=== PATIENT | male | born 1950 | race Caucasian/White ===

== ENCOUNTER 2024-05-27 18:11 | Emergency (ER) | payer OTHER ==
[2024-05-27 20:03] LABS: BASOPHILS ABSOLUTE AUTO 0.1 K/mm3 (0.0-0.2); BASOPHILS PERCENT AUTO 0.7 % (0.0-1.0); EOSINOPHILS ABSOLUTE AUTO 0.2 K/mm3 (0.0-0.4); EOSINOPHILS PERCENT AUTO 2.4 % (0.0-6.0); HEMATOCRIT 36.1 % (42.0-52.0); HEMOGLOBIN 12.7 gm/dl (14.0-18.0); IMMATURE GRAN ABSOLUTE AUTO 0.07 K/mm3 (0.00-0.05); LYMPHOCYTES ABSOLUTE AUTO 0.8 K/mm3 (1.0-4.8); LYMPHOCYTES PERCENT AUTO 11.4 % (24.0-44.0); MEAN CORPUSCULAR HEMOGLOBIN 29.7 pg (28.0-32.0); MEAN CORPUSCULAR HGB CONC 35.2 g/dl (32.0-36.0); MEAN CORPUSCULAR VOLUME 84.3 fl (83.0-99.0); MEAN PLATELET VOLUME 9.6 fl (9.4-12.4); MONOCYTES ABSOLUTE AUTO 0.6 K/mm3 (0.0-0.8); MONOCYTES PERCENT AUTO 8.5 % (0.0-8.0); NEUTROPHILS ABSOLUTE AUTO 5.4 K/mm3 (1.8-7.7); PLATELET COUNT,PLT 282 K/mm3 (150-400); RED BLOOD CELL COUNT 4.28 M/mm3 (4.52-5.90)
[2024-05-27] MEDS: Sodium Chloride 0.9% 1,000 ML IV SCH (20:16)
[2024-05-27] MEDS: Sodium Chloride 0.9% 10 ML Syringe FLUSH PRN (20:16)
[2024-05-27] MEDS: Ondansetron 4 MG/2 ML SDV IVPUSH ONE (20:16)
[2024-05-27 20:23] LABS: INR 1.06; PROTHROMBIN TIME 11.2 SECONDS (9.7-12.0)
[2024-05-27 20:32] LABS: A/G RATIO 0.6 (1-2); ALBUMIN 2.8 g/dl (3.4-5.0); ANION GAP 27.5 (5-15); BILIRUBIN TOTAL 0.4 mg/dL (0.2-1.0); C-REACTIVE PROTEIN 8.73 mg/dL (<0.30); CALCIUM 8.6 mg/dL (8.5-10.1); EST CRCL DRUG DOSING (CG) 7.42 mL/min; MAGNESIUM 2.8 mg/dL (1.8-2.4); POTASSIUM,K 4.5 mEq/L (3.5-5.1); PROTEIN TOTAL,TP 7.2 g/dl (6.4-8.2)
[2024-05-27 21:11] LABS: BUN/CREATININE RATIO 18.8 (14-18)
[2024-05-27] MEDS: Acetaminophen 325 MG Tab PO ONE (21:29)
[2024-05-27 22:25] LABS: BASE EXCESS ARTERIAL 9.4 (-2-2.0); BICARBONATE,ARTERIAL 14.4 meq/L (22.0-26.0); O2 SATURATION ARTERIAL 97.7 % (96.0-97.0)
[2024-05-27] MEDS: Sodium Bicarbonate 150 MEQ in Dextrose 5% in Water 1,000 ML IV ONE (23:36)
[2024-05-28 00:02] LABS: APPEARANCE,URINE CLEAR (Clear); BILIRUBIN,URINE NEGATIVE (Negative); COLOR,URINE YELLOW (Yellow); GLUCOSE,URINE NEGATIVE (Negative); KETONES,URINE TRACE (Negative); LEUKOCYTE ESTERASE,URINE NEGATIVE (Negative); NITRITE,URINE NEGATIVE (Negative); OCCULT BLOOD,URINE 3+ (Negative); PH,URINE 5.5 (5.0-8.0); PROTEIN,URINE 2+ (Negative); UROBILINOGEN,URINE 0.2 (0.2-1.0)
[2024-05-28 00:23] LABS: BACTERIA,URINE FEW /hpf (FEW); EPITHELIAL CELLS,URINE 0-5 /hpf (0-5); RBC,URINE 30-40 /hpf (0-5)
[2024-05-28 00:24] LABS: MUCUS,URINE NOT SEEN /hpf (FEW)
== END 2024-05-28 01:29 ==
LOC: JD.ED 18:11 → MERGE 18:11 → JD.ED 05-28 01:29
DX: N17.9 Acute kidney failure, unspecified (principal); R91.1 Solitary pulmonary nodule
CPT/HCPCS: 36415; 36600; 71046; 74176; 80053; 81001; 82803; 83605; 83690; 83735; 83880; 84484; 85025; 85610; 86140; 87428; 93005; 96361; 96365; 96366; 96375; 99285; A9270; J2405; J7030; J7060; 93010; J3490

== ENCOUNTER 2024-06-09 14:39 | Inpatient (IN) | payer OTHER ==
[2024-06-09 16:00] LABS: APPEARANCE,URINE CLEAR (Clear); BILIRUBIN,URINE NEGATIVE (Negative); COLOR,URINE YELLOW (Yellow); GLUCOSE,URINE NEGATIVE (Negative); KETONES,URINE NEGATIVE (Negative); LEUKOCYTE ESTERASE,URINE NEGATIVE (Negative); NITRITE,URINE NEGATIVE (Negative); OCCULT BLOOD,URINE NEGATIVE (Negative); PROTEIN,URINE 2+ (Negative)
[2024-06-09 16:30] LABS: RBC,URINE 0-5 /hpf (0-5); WBC,URINE 0-5 /hpf (0-5)
[2024-06-09 16:31] LABS: BACTERIA,URINE FEW /hpf (FEW); EPITHELIAL CELLS,URINE 0-5 /hpf (0-5); MUCUS,URINE NOT SEEN /hpf (FEW)
[2024-06-09 16:36] LABS: BASOPHILS ABSOLUTE AUTO 0.1 K/mm3 (0.0-0.2); BASOPHILS PERCENT AUTO 1.2 % (0.0-1.0); EOSINOPHILS ABSOLUTE AUTO 0.2 K/mm3 (0.0-0.4); EOSINOPHILS PERCENT AUTO 4.6 % (0.0-6.0); HEMATOCRIT 24.3 % (42.0-52.0); IMMATURE GRAN ABSOLUTE AUTO 0.01 K/mm3 (0.00-0.05); IMMATURE GRAN PERCENT AUTO 0.2 % (0.0-0.4); LYMPHOCYTES ABSOLUTE AUTO 1.4 K/mm3 (1.0-4.8); LYMPHOCYTES PERCENT AUTO 28.3 % (24.0-44.0); MEAN CORPUSCULAR HGB CONC 33.3 g/dl (32.0-36.0); MEAN PLATELET VOLUME 10.4 fl (9.4-12.4); MONOCYTES ABSOLUTE AUTO 0.6 K/mm3 (0.0-0.8); MONOCYTES PERCENT AUTO 11.7 % (0.0-8.0); NEUTROPHILS ABSOLUTE AUTO 2.7 K/mm3 (1.8-7.7); PLATELET COUNT,PLT 230 K/mm3 (150-400); WHITE BLOOD CELL COUNT,WBC 5.05 K/mm3 (3.9-11.3)
[2024-06-09 16:37] LABS: HEMOGLOBIN 8.1 gm/dl (14.0-18.0)
[2024-06-09 17:10] LABS: A/G RATIO 0.7 (1-2); ALANINE AMINOTRANSFERASE,ALT 20 U/L (16-63); ALBUMIN 2.6 g/dl (3.4-5.0); ALKALINE PHOSPHATASE 71 U/L (46-116); ANION GAP 10.3 (5-15); ASPARTATE AMNIOTRANSFERASE,AST 14 U/L (15-37); BILIRUBIN TOTAL 0.3 mg/dL (0.2-1.0); BUN/CREATININE RATIO 19.3 (14-18); CALCIUM 8.2 mg/dL (8.5-10.1); ESTIMATED GFR 53 mL/min (>60); GLUCOSE RANDOM 86 mg/dL (70-99); PROTEIN TOTAL,TP 6.2 g/dl (6.4-8.2)
[2024-06-09 17:22] LABS: CARBON DIOXIDE,CO2 23 mEq/L (21-32); SODIUM,NA 139 mEq/L (136-145)
[2024-06-09 17:35] LABS: POTASSIUM,K 4.3 mEq/L (3.5-5.1)
[2024-06-09 17:36] LABS: CHLORIDE,CL 108 mEq/L (98-107)
[2024-06-09 17:37] LABS: BLOOD UREA NITROGEN,BUN 28 mg/dL (7-18); CREATININE 1.4 mg/dL (0.7-1.3)
[2024-06-09] MEDS: Sodium Chloride 0.9% 10 ML Syringe FLUSH PRN (20:04)
[2024-06-09] MEDS: Furosemide 40 MG/4 ML VIAL IVPUSH ONE (20:04)
[2024-06-09 20:40] LABS: CREATININE,URINE RAND 95.1 mg/dL (30.0-125.0); PROTEIN CREATININE RATIO,URINE 645.6 mg/g (0-149); PROTEIN,URINE RANDOM 61.4 mg/dL (0.0-11.8)
[2024-06-09] MEDS ORDERED: Labetalol 100 MG/20 ML MDV IVPUSH PRN ×4 (20:55→21:24)
[2024-06-09] MEDS: hydrALAZINE 20 MG/ML SDV IVPUSH PRN (21:29)
[2024-06-09] MEDS: Acetaminophen 325 MG Tab PO PRN (21:56)
[2024-06-10 06:04] LABS: BASOPHILS ABSOLUTE AUTO 0.1 K/mm3 (0.0-0.2); BASOPHILS PERCENT AUTO 1.2 % (0.0-1.0); EOSINOPHILS ABSOLUTE AUTO 0.2 K/mm3 (0.0-0.4); EOSINOPHILS PERCENT AUTO 4.4 % (0.0-6.0); HEMATOCRIT 27.3 % (42.0-52.0); IMMATURE GRAN ABSOLUTE AUTO 0.02 K/mm3 (0.00-0.05); IMMATURE GRAN PERCENT AUTO 0.4 % (0.0-0.4); LYMPHOCYTES ABSOLUTE AUTO 1.4 K/mm3 (1.0-4.8); LYMPHOCYTES PERCENT AUTO 26.9 % (24.0-44.0); MEAN CORPUSCULAR HEMOGLOBIN 29.4 pg (28.0-32.0); MEAN CORPUSCULAR VOLUME 89.2 fl (83.0-99.0); MEAN PLATELET VOLUME 10.7 fl (9.4-12.4); MONOCYTES ABSOLUTE AUTO 0.6 K/mm3 (0.0-0.8); NEUTROPHILS ABSOLUTE AUTO 2.8 K/mm3 (1.8-7.7); NEUTROPHILS PERCENT AUTO 56.1 % (41.0-71.0); PLATELET COUNT,PLT 247 K/mm3 (150-400); RED BLOOD CELL COUNT 3.06 M/mm3 (4.52-5.90); WHITE BLOOD CELL COUNT,WBC 5.02 K/mm3 (3.9-11.3)
[2024-06-10] MEDS: Furosemide 40 MG/4 ML VIAL IVPUSH SCH (06:08)
[2024-06-10 06:32] LABS: A/G RATIO 0.8 (1-2); ALBUMIN 2.7 g/dl (3.4-5.0); ANION GAP 12.9 (5-15); BILIRUBIN TOTAL 0.4 mg/dL (0.2-1.0); BUN/CREATININE RATIO 18.5 (14-18); CREATININE 1.3 mg/dL (0.7-1.3); EST CRCL DRUG DOSING (CG) 51.36 mL/min; POTASSIUM,K 3.9 mEq/L (3.5-5.1); PROTEIN TOTAL,TP 6.3 g/dl (6.4-8.2)
[2024-06-10] MEDS: Enoxaparin 40 MG/0.4 ML Syringe SUBCUT SCH (08:13)
[2024-06-10] MEDS: SUMAtriptan 50 MG Tab PO PRN (09:42)
[2024-06-10] MEDS: Propranolol 80 MG Cap.ER PO SCH (10:29)
[2024-06-10] MEDS: Venlafaxine 75 MG Cap.ER PO SCH (10:29)
[2024-06-10] MEDS ORDERED: Labetalol 100 MG/20 ML MDV IVPUSH PRN (17:14)
[2024-06-10] MEDS ORDERED: Sennosides/Docusate Sodium 50-8.6 MG Tab PO PRN (17:24)
[2024-06-10] MEDS: hydrALAZINE 20 MG/ML SDV IVPUSH PRN (17:26)
[2024-06-11] MEDS ORDERED: Ondansetron 4 MG Tab.DIS PO PRN (00:56)
[2024-06-11] MEDS ORDERED: Ondansetron 4 MG/2 ML SDV IVPUSH PRN (00:56)
[2024-06-11] MEDS: LORazepam 2 MG/ML SDV IVPUSH PRN (01:04)
[2024-06-11 05:46] LABS: ANION GAP 13.9 (5-15); BUN/CREATININE RATIO 17.3 (14-18); CALCIUM 8.6 mg/dL (8.5-10.1); CREATININE 1.1 mg/dL (0.7-1.3); EST CRCL DRUG DOSING (CG) 60.7 mL/min; MAGNESIUM 1.9 mg/dL (1.8-2.4); PHOSPHORUS 3.7 mg/dL (2.6-4.7); POTASSIUM,K 3.9 mEq/L (3.5-5.1)
[2024-06-11] MEDS: Furosemide 40 MG Tab PO SCH (08:36)
[2024-06-11] MEDS: Empagliflozin 10 MG Tab PO SCH (08:36)
== END 2024-06-11 10:30 | disposition home or self-care (01) | DRG 291 ==
LOC: JD.ED 14:39 → JD.MS 19:46
PROVIDERS: ADMIT Family Medicine; ATTEND Student in an Organized Health Care Education/Training Program
DX: I50.9 Heart failure, unspecified (principal); D64.9 Anemia, unspecified; I13.0 Hypertensive heart and chronic kidney disease with heart failure and stage 1 through stage 4 chronic kidney disease, or unspecified chronic kidney disease; R60.0 Localized edema; I50.33 Acute on chronic diastolic (congestive) heart failure; N17.9 Acute kidney failure, unspecified; I27.20 Pulmonary hypertension, unspecified; I08.3 Combined rheumatic disorders of mitral, aortic and tricuspid valves; I50.810 Right heart failure, unspecified; D63.1 Anemia in chronic kidney disease; I16.0 Hypertensive urgency; H91.90 Unspecified hearing loss, unspecified ear; E66.9 Obesity, unspecified; R79.89 Other specified abnormal findings of blood chemistry; K21.9 Gastro-esophageal reflux disease without esophagitis; N18.9 Chronic kidney disease, unspecified; G43.909 Migraine, unspecified, not intractable, without status migrainosus; F41.9 Anxiety disorder, unspecified; F32.A Depression, unspecified; Z68.34 Body mass index [BMI] 34.0-34.9, adult; Z79.899 Other long term (current) drug therapy; Z87.891 Personal history of nicotine dependence
CPT/HCPCS: 36415; 51798; 71045; 71045-26; 80048; 80053; 81001; 82570; 83735; 83880; 84100; 84156; 84484; 85018; 85025; 93005; 93010; 93306; 93970; 93970-26; 97161-GP; 99285; A9270-GY; J0360; J1650; J1940; J2060